=== PATIENT | male | born 1955 | race Caucasian/White ===

== ENCOUNTER 2025-01-30 09:37 | Inpatient (IN) | payer MEDICARE, OTHER ==
[~2025-01-30] VITALS: Ht 193 cm; Wt 86.6 kg
[2025-01-30 10:00] VITALS: BP 134/77
[2025-01-30 10:01] LABS: PLATELET COUNT (AUTO) 135 K/uL (152-348); RED BLOOD CELL COUNT(AUTO) 4.40 MIL/uL (4.06-5.63); RED CELL DISTRIBUTION WIDTH 13.4 % (12.1-16.2); WHITE BLOOD COUNT (AUTO) 3.5 K/uL (3.6-10.2)
[2025-01-30 10:17] LABS: ASPARTATE AMINOTRANSFERASE 16 U/L (15-37); CREATININE 0.9 mg/dL (0.6-1.3); SODIUM SERUM 143 mmol/L (136-145); TOTAL PROTEIN, SERUM 6.8 g/dL (6.4-8.2); UREA NITROGEN, BLOOD 12 mg/dL (7-18)
[2025-01-30 12:49] VITALS: BP 130/71; TEMP 97.4; O2SAT 100
[2025-01-30] MEDS ORDERED: TADA5TAB2 PO (13:13)
[2025-01-30] MEDS ORDERED: DUTA0.5C PO (13:14)
[2025-01-30] MEDS ORDERED: TAMS-3 PO (13:15)
[2025-01-30 16:00] VITALS: BP 130/68; TEMP 97.5; O2SAT 100
[2025-01-30] MEDS ORDERED: MAGNESIUM HYDROXIDE 30 ML LIQUID UDC PO PRN (16:00)
[2025-01-30] MEDS ORDERED: ONDANSETRON 4 MG/2 ML VIAL IV PRN (16:00)
[2025-01-30] MEDS ORDERED: ZOLPIDEM 5 MG TABLET PO PRN (16:00)
[2025-01-30] MEDS ORDERED: ACETAMINOPHEN 325 MG TABLET PO PRN (16:00)
[2025-01-30 19:41] VITALS: BP 133/63; TEMP 97.8; O2SAT 96
[2025-01-30] MEDS: TAMSULOSIN HCL 0.4 MG CAP.SR.24H PO SCH (22:39)
[2025-01-30 23:41] VITALS: BP 129/69; TEMP 98.1; O2SAT 99
[2025-01-31 05:53] VITALS: BP 106/52; TEMP 97.7; O2SAT 94
[2025-01-31] MEDS: PANTOPRAZOLE SODIUM 40 MG TABLET.DR PO SCH (06:35)
[2025-01-31 07:12] LABS: PLATELET COUNT (AUTO) 145 K/uL (152-348); RED BLOOD CELL COUNT(AUTO) 4.79 MIL/uL (4.06-5.63); RED CELL DISTRIBUTION WIDTH 13.4 % (12.1-16.2); WHITE BLOOD COUNT (AUTO) 5.4 K/uL (3.6-10.2)
[2025-01-31 07:35] VITALS: BP 134/65; TEMP 97.5; O2SAT 99
[2025-01-31 07:44] LABS: ASPARTATE AMINOTRANSFERASE 16.0 U/L (15-37); CREATININE 0.8 mg/dL (0.6-1.3); SODIUM SERUM 143.0 mmol/L (136-145); TOTAL PROTEIN, SERUM 7.3 g/dL (6.4-8.2); UREA NITROGEN, BLOOD 11.0 mg/dL (7-18)
[2025-01-31] MEDS ORDERED: RIVA20TA PO (11:28)
[2025-01-31] MEDS ORDERED: PANT40TA49 PO (11:28)
[2025-01-31 11:35] VITALS: BP 123/57; TEMP 97.6; O2SAT 100
[2025-02-01] MEDS ORDERED: DUTASTERIDE 0.5 MG CAPSULE PO SCH (09:00)
== END 2025-01-31 14:00 | disposition home or self-care (01) | DRG 310 ==
LOC: ER 09:37 → TELE3 11:54
PROVIDERS: ADMIT Internal Medicine; ATTEND Internal Medicine
DX: I48.92 Unspecified atrial flutter (principal); T42.4X5A Adverse effect of benzodiazepines, initial encounter; T40.415A Adverse effect of fentanyl or fentanyl analogs, initial encounter; Y92.530 Ambulatory surgery center as the place of occurrence of the external cause; I49.5 Sick sinus syndrome; N40.0 Benign prostatic hyperplasia without lower urinary tract symptoms; Z88.0 Allergy status to penicillin; E78.5 Hyperlipidemia, unspecified; I05.9 Rheumatic mitral valve disease, unspecified; Z86.0100 Personal history of colon polyps, unspecified; M51.369 Other intervertebral disc degeneration, lumbar region without mention of lumbar back pain or lower extremity pain
CPT/HCPCS: 36415; 71045; 83735; 84100; 84443; 84484; 85025; 85730; 93005; 93307; A4606; A4663; G0378